=== PATIENT | male | born 1955 | race Caucasian/White ===

== ENCOUNTER → 2017-02-02 | Day surgery (SDC) | payer BC ==
[~2017-02-02] VITALS: Ht 170.2 cm; Wt 101.2 kg
[~2017-02-02] MED LIST: ARTHROTEC 50 OR; ASPIRIN81 MG PO; MULTI VIT PO; NORVASC10 M1 PO; PRAVASTATIN20 MG PO; TENORMIN25 MG PO; TERAZOSIN5 MG OR; VYTORIN 10/401 TAB OR
[2017-02-02 08:49] VITALS: BP 123/76
== END | disposition home or self-care (01) | DRG 951 ==
LOC: ENDO 01-27 08:30
PROVIDERS: ATTEND Surgery
PROC: 0DBN8ZX Excision of Sigmoid Colon, Via Natural or Artificial Opening Endoscopic, Diagnostic (ICD-10-PCS; principal; 2017-02-02)
DX: Z12.11 Encounter for screening for malignant neoplasm of colon (principal); I10 Essential (primary) hypertension; D12.5 Benign neoplasm of sigmoid colon; K57.30 Diverticulosis of large intestine without perforation or abscess without bleeding; E78.5 Hyperlipidemia, unspecified

== ENCOUNTER → 2018-07-31 | Outpatient (REF) | payer SELFPAY ==
[2018-07-31 08:59] LABS: ALBUMIN 4.1 g/dL (3.2-5.0); BILIRUBIN, TOTAL 0.9 mg/dL (0.0-1.4); CREATININE 1.5 mg/dL (0.7-1.3); POTASSIUM 4.4 mmol/l (3.5-5.1)
== END | disposition home or self-care (01) | DRG 305 ==
LOC: LAB 07:27
PROVIDERS: ATTEND Nurse Practitioner
DX: I10 Essential (primary) hypertension (principal)

== ENCOUNTER 2022-04-20 06:55 | Day surgery (SDC) | payer MEDICARE ==
[~2022-04-20] VITALS: Ht 167.6 cm; Wt 99.8 kg
[~2022-04-20 06:55] MED LIST changes: +AMLODIPINE PO; +COZAAR25 MG PO; +[UNRECOGNIZED DRUG - OTHER]
[2022-04-20 09:03] VITALS: BP 125/87
== END 2022-04-20 09:15 | disposition home or self-care (01) ==
LOC: ENDO 06:55 → ORM 08:00 → ENDO 09:15
PROVIDERS: ATTEND Surgery
PROC: 0DBH8ZX Excision of Cecum, Via Natural or Artificial Opening Endoscopic, Diagnostic (ICD-10-PCS; principal; 2022-04-20)
PROC: 0DBN8ZX Excision of Sigmoid Colon, Via Natural or Artificial Opening Endoscopic, Diagnostic (ICD-10-PCS; 2022-04-20)
PROC: 0DBM8ZX Excision of Descending Colon, Via Natural or Artificial Opening Endoscopic, Diagnostic (ICD-10-PCS; 2022-04-20)
DX: Z12.11 Encounter for screening for malignant neoplasm of colon (principal); D12.0 Benign neoplasm of cecum; D12.4 Benign neoplasm of descending colon; D12.5 Benign neoplasm of sigmoid colon; K57.30 Diverticulosis of large intestine without perforation or abscess without bleeding; K64.8 Other hemorrhoids; I10 Essential (primary) hypertension; E78.5 Hyperlipidemia, unspecified; Z86.010 Personal history of colon polyps; Z83.71 Family history of colonic polyps

== ENCOUNTER 2023-01-14 18:24 | Inpatient (IN) | payer MEDICARE ==
[~2023-01-14] VITALS: Ht 167.6 cm; Wt 83.0 kg
[2023-01-14] VITALS (13 sets, daily range): BP systolic 97–151; BP diastolic 65–92
[2023-01-14 18:59] LABS: BASO% 0.2 % (0-3); EOS% 0.5 % (0-8); HEMATOCRIT 39.8 % (39.0-50.0); HEMOGLOBIN 14.6 g/dl (14.0-18.0); IMMATURE GRANULOCYTES 0.6 % (0.0-5.0); MEAN CORPUSCULAR HGB 33.2 pG CALC (26.0-32.0); MEAN CORPUSCULAR HGB CONC 36.7 g/dL CAL (32.0-36.0); NEUT# 10.41 thou/uL (1.82-7.42); NEUT% 83.7 % (42-76); RED BLOOD COUNT 4.4 mill/uL (4.70-6.10); RED CELL DISTRI WIDTH 11.6 % (11.5-15.5)
[2023-01-14 19:01] LABS: MEAN CELL VOLUME 90.5 fL CALC (80.0-100.0)
[2023-01-14 19:15] LABS: INTERNATIONAL NORMALIZED RATIO 1.2 RATIO (0.7-1.3); PROTHROMBIN TIME 11.2 SECONDS (9.0-12.5)
[2023-01-14 19:35] LABS: ALBUMIN 4.2 g/dL (3.2-5.0); ALKALINE PHOSPHATASE 123 u/l (38-126); BUN 7 mg/dL (8-23); BUN/CREATININE RATIO 12 (12-20 (CALC)); CALCULATED LDLCHOLESTEROL 134 mg/dL (62-129 (CALC)); CHOLESTEROL HDL RATIO 3.6 (<4.4 (CALC)); CREATININE 0.6 mg/dL (0.7-1.3); GFR FOR AFR.AMER. > 60 ML/MIN (>=60 (CALC)); GFR OTHER RACES > 60 ML/MIN (>=60 (CALC)); HDL CHOLESTEROL 58 mg/dL (39.0-59.0); POTASSIUM 3.8 mmol/l (3.5-5.1); TOTAL CHOLESTEROL 207 mg/dl (0-199); TOTAL TRIGLYCERIDES 74 mg/dl (0-149); VLDL CHOLESTROL 15 mg/dl (4-45 (CALC))
[2023-01-14 19:41] LABS: ANION GAP 18 (6-22 (CALC)); BILIRUBIN, TOTAL 2.6 mg/dL (0.2-1.3); CARBON DIOXIDE 18 mmol/l (22-30); CHLORIDE 79 mmol/l (95-108); SGOT/AST 58 u/l (19-48); SODIUM 111 mmol/l (137-146)
[2023-01-14 19:56] LABS: URINE BILIRUBIN - DIPSTICK Negative (NEGATIVE); URINE BLOOD DIPSTICK Small (NEGATIVE); URINE GLUCOSE - DIPSTICK 100 mg/dL (NEGATIVE); URINE KETONE 15 mg/dL (NEGATIVE); URINE LEUK ESTERASE Negative (NEGATIVE); URINE NITRITE - DIPSTICK Negative (Negative); URINE PH 6.5 (4.5-8.0); URINE PROTEIN - DIPSTICK 30 mg/dL (NEG-TRACE); URINE SPECIFIC GRAVITY 1.015; URINE UROBILINOGEN - DIPSTICK 0.2 E.U./dL (0.2)
[2023-01-14 19:58] LABS: URINE COLOR Yellow
[2023-01-14 20:05] LABS: URINE CASTS RARE lpf (NONE-RARE); URINE RBC 0-2 RBC/hpf (0-5); URINE SQUAMOUS EPITHELIAL CELL RARE EPI/hpf (0-FEW)
[2023-01-15] VITALS (84 sets, daily range): BP systolic 86–166; BP diastolic 55–105
[2023-01-15 02:31] LABS: BUN 7 mg/dL (8-23); BUN/CREATININE RATIO 15 (12-20 (CALC)); CREATININE 0.4 mg/dL (0.7-1.3); GFR FOR AFR.AMER. > 60 ML/MIN (>=60 (CALC)); GFR OTHER RACES > 60 ML/MIN (>=60 (CALC)); POTASSIUM 3.6 mmol/l (3.5-5.1)
[2023-01-15 02:32] LABS: ANION GAP 11 (6-22 (CALC)); CARBON DIOXIDE 23 mmol/l (22-30); CHLORIDE 92 mmol/l (95-108); SODIUM 122 mmol/l (137-146)
[2023-01-15 11:24] LABS: ANION GAP 10 (6-22 (CALC)); BUN 6 mg/dL (8-23); BUN/CREATININE RATIO 12 (12-20 (CALC)); CARBON DIOXIDE 24 mmol/l (22-30); CHLORIDE 100 mmol/l (95-108); CREATININE 0.5 mg/dL (0.7-1.3); GFR FOR AFR.AMER. > 60 ML/MIN (>=60 (CALC)); GFR OTHER RACES > 60 ML/MIN (>=60 (CALC)); POTASSIUM 3.8 mmol/l (3.5-5.1)
[2023-01-15 11:36] LABS: SODIUM 130 mmol/l (137-146)
[2023-01-15 16:52] LABS: BUN 9 mg/dL (8-23); CARBON DIOXIDE 25 mmol/l (22-30); CHLORIDE 99 mmol/l (95-108); CREATININE 0.6 mg/dL (0.7-1.3); GFR FOR AFR.AMER. > 60 ML/MIN (>=60 (CALC)); GFR OTHER RACES > 60 ML/MIN (>=60 (CALC)); POTASSIUM 3.6 mmol/l (3.5-5.1); SODIUM 128 mmol/l (137-146)
[2023-01-15 16:54] LABS: ALBUMIN 3.3 g/dL (3.2-5.0)
[2023-01-16] VITALS (35 sets, daily range): BP systolic 116–165; BP diastolic 65–109
[2023-01-16 08:52] LABS: HEMATOCRIT 41.3 % (39.0-50.0); HEMOGLOBIN 14.2 g/dl (14.0-18.0); MEAN CELL VOLUME 95.4 fL CALC (80.0-100.0); MEAN CORPUSCULAR HGB 32.8 pG CALC (26.0-32.0); MEAN CORPUSCULAR HGB CONC 34.4 g/dL CAL (32.0-36.0); RED BLOOD COUNT 4.33 mill/uL (4.70-6.10); RED CELL DISTRI WIDTH 12.3 % (11.5-15.5)
[2023-01-16 09:00] LABS: ALBUMIN 3.4 g/dL (3.2-5.0); BUN 5 mg/dL (8-23); CARBON DIOXIDE 30 mmol/l (22-30); CHLORIDE 94 mmol/l (95-108); CREATININE 0.6 mg/dL (0.7-1.3); GFR FOR AFR.AMER. > 60 ML/MIN (>=60 (CALC)); GFR OTHER RACES > 60 ML/MIN (>=60 (CALC)); POTASSIUM 3.4 mmol/l (3.5-5.1); SODIUM 130 mmol/l (137-146)
[2023-01-16] MEDS ORDERED: PREDNISOLONE AC OS (19:43)
[2023-01-17] VITALS (7 sets, daily range): BP systolic 122–144; BP diastolic 63–93
[2023-01-17 09:02] LABS: ALBUMIN 3.6 g/dL (3.2-5.0); ALKALINE PHOSPHATASE 91 u/l (38-126); ANION GAP 11 (6-22 (CALC)); BUN 5 mg/dL (8-23); BUN/CREATININE RATIO 8 (12-20 (CALC)); CARBON DIOXIDE 29 mmol/l (22-30); CHLORIDE 92 mmol/l (95-108); CREATININE 0.7 mg/dL (0.7-1.3); GFR FOR AFR.AMER. > 60 ML/MIN (>=60 (CALC)); GFR OTHER RACES > 60 ML/MIN (>=60 (CALC)); POTASSIUM 3.7 mmol/l (3.5-5.1); SGOT/AST 83 u/l (19-48); SODIUM 128 mmol/l (137-146); TOTAL PROTEIN 6.6 g/dL (6.3-8.2)
[2023-01-17 09:03] LABS: BILIRUBIN, TOTAL 1.4 mg/dL (0.2-1.3)
[2023-01-17] MEDS ORDERED: NORVASC10 M1 PO (14:28)
[2023-01-18] VITALS (10 sets, daily range): BP systolic 112–141; BP diastolic 71–84
[2023-01-18 05:27] LABS: ALBUMIN 3.2 g/dL (3.2-5.0); BUN 10 mg/dL (8-23); CARBON DIOXIDE 26 mmol/l (22-30); CHLORIDE 99 mmol/l (95-108); CREATININE 0.6 mg/dL (0.7-1.3); GFR FOR AFR.AMER. > 60 ML/MIN (>=60 (CALC)); GFR OTHER RACES > 60 ML/MIN (>=60 (CALC)); POTASSIUM 3.7 mmol/l (3.5-5.1); SODIUM 129 mmol/l (137-146)
[2023-01-18 05:28] LABS: ALBUMIN 3.2 g/dL (3.2-5.0); ALKALINE PHOSPHATASE 100 u/l (38-126); ANION GAP 10 (6-22 (CALC)); BILIRUBIN, TOTAL 1.3 mg/dL (0.2-1.3); BUN 10 mg/dL (8-23); BUN/CREATININE RATIO 16 (12-20 (CALC)); CARBON DIOXIDE 25 mmol/l (22-30); CHLORIDE 98 mmol/l (95-108); CREATININE 0.6 mg/dL (0.7-1.3); GFR FOR AFR.AMER. > 60 ML/MIN (>=60 (CALC)); GFR OTHER RACES > 60 ML/MIN (>=60 (CALC)); POTASSIUM 3.8 mmol/l (3.5-5.1); SGOT/AST 89 u/l (19-48); SODIUM 130 mmol/l (137-146); TOTAL PROTEIN 5.8 g/dL (6.3-8.2)
[2023-01-18 05:32] LABS: BASO% 0.5 % (0-3); EOS% 2.2 % (0-8); HEMATOCRIT 42.4 % (39.0-50.0); HEMOGLOBIN 14.5 g/dl (14.0-18.0); IMMATURE GRANULOCYTES 0.3 % (0.0-5.0); LYMPH% 13.8 % (15-41); MEAN CELL VOLUME 96.8 fL CALC (80.0-100.0); MEAN CORPUSCULAR HGB 33.1 pG CALC (26.0-32.0); MEAN CORPUSCULAR HGB CONC 34.2 g/dL CAL (32.0-36.0); MONO% 12.8 % (2-13); NEUT# 4.55 thou/uL (1.82-7.42); NEUT% 70.4 % (42-76); RED BLOOD COUNT 4.38 mill/uL (4.70-6.10); RED CELL DISTRI WIDTH 12.1 % (11.5-15.5)
[2023-01-19 00:16] VITALS: BP 129/83
[2023-01-19 00:31] VITALS: BP 129/83
[2023-01-19 04:12] VITALS: BP 144/78
[2023-01-19 05:03] VITALS: BP 144/78
[2023-01-19 06:17] LABS: BASO% 0.7 % (0-3); HEMATOCRIT 41.1 % (39.0-50.0); HEMOGLOBIN 14.1 g/dl (14.0-18.0); IMMATURE GRANULOCYTES 0.6 % (0.0-5.0); LYMPH% 12.2 % (15-41); MEAN CELL VOLUME 96.9 fL CALC (80.0-100.0); MEAN CORPUSCULAR HGB 33.3 pG CALC (26.0-32.0); MEAN CORPUSCULAR HGB CONC 34.3 g/dL CAL (32.0-36.0); MONO% 15.9 % (2-13); NEUT# 4.69 thou/uL (1.82-7.42); NEUT% 67.6 % (42-76); RED BLOOD COUNT 4.24 mill/uL (4.70-6.10); RED CELL DISTRI WIDTH 12.3 % (11.5-15.5)
[2023-01-19 06:22] LABS: ALBUMIN 3.1 g/dL (3.2-5.0); ALKALINE PHOSPHATASE 107 u/l (38-126); ANION GAP 8 (6-22 (CALC)); BILIRUBIN, TOTAL 1.1 mg/dL (0.2-1.3); BUN 14 mg/dL (8-23); BUN/CREATININE RATIO 21 (12-20 (CALC)); CARBON DIOXIDE 29 mmol/l (22-30); CHLORIDE 98 mmol/l (95-108); CREATININE 0.7 mg/dL (0.7-1.3); GFR FOR AFR.AMER. > 60 ML/MIN (>=60 (CALC)); GFR OTHER RACES > 60 ML/MIN (>=60 (CALC)); SGOT/AST 88 u/l (19-48); SODIUM 132 mmol/l (137-146); TOTAL PROTEIN 5.7 g/dL (6.3-8.2)
[2023-01-19 07:37] VITALS: BP 138/74
[2023-01-19 10:44] VITALS: BP 126/74
[2023-01-19] MEDS ORDERED: SOD CHLORIDE1 GM PO (13:03)
== END 2023-01-19 14:14 | DRG 640 ==
LOC: ED 18:24 → ED-I 21:00 → ED 21:13 → ICU 21:14 → MS2 22:13 → ICU 22:13 → MS2 22:36
PROVIDERS: Family Medicine; Internal Medicine Nephrology; Nurse Practitioner Family; ADMIT Student in an Organized Health Care Education/Training Program; ATTEND Student in an Organized Health Care Education/Training Program
DX: E87.1 Hypo-osmolality and hyponatremia (principal); G93.41 Metabolic encephalopathy; R56.9 Unspecified convulsions; E86.0 Dehydration; F10.10 Alcohol abuse, uncomplicated; I10 Essential (primary) hypertension; E78.5 Hyperlipidemia, unspecified; S20.212A Contusion of left front wall of thorax, initial encounter; W19.XXXA Unspecified fall, initial encounter; F17.200 Nicotine dependence, unspecified, uncomplicated; X30.XXXA Exposure to excessive natural heat, initial encounter; Z96.612 Presence of left artificial shoulder joint
CPT/HCPCS: J1650; J2060; Q9967

== ENCOUNTER 2024-08-01 09:09 | Emergency (ER) | payer MEDICARE ==
[~2024-08-01] VITALS: Ht 167.6 cm; Wt 68.0 kg
[2024-08-01] VITALS (12 sets, daily range): BP systolic 105–132; BP diastolic 78–90
[~2024-08-01 09:09] MED LIST changes: +PREDNISOLONE AC OS; +SOD CHLORIDE1 GM PO
[2024-08-01] MEDS ORDERED: KETOROLAC TROMETHAMINE 30 MG/ML SDV IM ONE (10:10)
[2024-08-01] MEDS ORDERED: ACETAMINOPHEN 500 MG TAB PO ONE (10:10)
[2024-08-01] MEDS ORDERED: TRAMADOL HYDROC50 M1 PO (11:58)
[2024-08-01] MEDS ORDERED: EC-NAPROXEN500 MG PO (11:58)
[2024-08-01] MEDS ORDERED: CEPHALEXIN500 M1 PO (12:01)
== END 2024-08-01 12:13 | disposition home or self-care (01) ==
LOC: ED 09:09
DX: S22.080A Wedge compression fracture of T11-T12 vertebra, initial encounter for closed fracture (principal); S32.030A Wedge compression fracture of third lumbar vertebra, initial encounter for closed fracture; S51.011A Laceration without foreign body of right elbow, initial encounter; I10 Essential (primary) hypertension; W19.XXXA Unspecified fall, initial encounter; Z72.0 Tobacco use

== ENCOUNTER 2024-08-02 10:39 | Emergency (ER) | payer MEDICARE ==
[2024-08-02] VITALS (8 sets, daily range): BP systolic 106–130; BP diastolic 77–86
[~2024-08-02] VITALS: Ht 167.6 cm; Wt 78.9 kg
[~2024-08-02 10:39] MED LIST changes: +CEPHALEXIN500 M1 PO; +EC-NAPROXEN500 MG PO; +TRAMADOL HYDROC50 M1 PO
== END 2024-08-02 12:24 | disposition home or self-care (01) ==
LOC: ED 10:39
DX: S41.111D Laceration without foreign body of right upper arm, subsequent encounter (principal); X58.XXXD Exposure to other specified factors, subsequent encounter; I10 Essential (primary) hypertension

== ENCOUNTER 2024-08-05 09:51 | Emergency (ER) | payer MEDICARE ==
[~2024-08-05] VITALS: Ht 167.6 cm; Wt 101.0 kg
[2024-08-05 09:58] VITALS: BP 123/88
[2024-08-05 10:00] VITALS: BP 120/81
== END 2024-08-05 10:08 | disposition home or self-care (01) ==
LOC: ED 09:51
DX: S51.811D Laceration without foreign body of right forearm, subsequent encounter (principal); I10 Essential (primary) hypertension; X58.XXXD Exposure to other specified factors, subsequent encounter; Z72.0 Tobacco use

== ENCOUNTER 2024-08-10 10:43 | Emergency (ER) | payer MEDICARE ==
[~2024-08-10] VITALS: Ht 167.6 cm; Wt 78.9 kg
[2024-08-10] VITALS (29 sets, daily range): BP systolic 78–116; BP diastolic 56–79
[2024-08-10 11:39] LABS: BASO% 0.7 % (0-3); EOS% 2.4 % (0-8); HEMATOCRIT 39.5 % (39.0-50.0); HEMOGLOBIN 13.6 g/dl (14.0-18.0); IMMATURE GRANULOCYTES 0.2 % (0.0-5.0); LYMPH% 14.8 % (15-41); MEAN CELL VOLUME 93.4 fL CALC (80.0-100.0); MEAN CORPUSCULAR HGB 32.2 pG CALC (26.0-32.0); MEAN CORPUSCULAR HGB CONC 34.4 g/dL CAL (32.0-36.0); MONO% 10.1 % (2-13); NEUT# 6.49 thou/uL (1.82-7.42); NEUT% 71.8 % (42-76); RED BLOOD COUNT 4.23 mill/uL (4.70-6.10); RED CELL DISTRI WIDTH 11.7 % (11.5-15.5)
[2024-08-10 11:58] LABS: ALBUMIN 3.5 g/dL (3.2-5.0); BILIRUBIN, TOTAL 1.1 mg/dL (0.2-1.3); CREATININE 0.8 mg/dL (0.7-1.3); POTASSIUM 3.8 mmol/l (3.5-5.1); TOTAL PROTEIN 6.5 g/dL (6.3-8.2)
[2024-08-10] MEDS ORDERED: SODIUM CHLORIDE 0.9% 1,000 ML IV ONE (12:20)
== END 2024-08-10 17:29 | disposition home or self-care (01) ==
LOC: ED 10:43
PROVIDERS: Family Medicine
DX: I11.0 Hypertensive heart disease with heart failure (principal); I50.9 Heart failure, unspecified; M54.9 Dorsalgia, unspecified; I48.91 Unspecified atrial fibrillation; Z72.0 Tobacco use
CPT/HCPCS: Q9967

== ENCOUNTER 2024-08-11 08:44 | Emergency (ER) | payer MEDICARE ==
[2024-08-11] VITALS (9 sets, daily range): BP systolic 93–121; BP diastolic 57–82
[~2024-08-11] VITALS: Ht 167.6 cm; Wt 77.0 kg
[2024-08-11 09:40] LABS: EOS% 4.5 % (0-8); HEMATOCRIT 41.2 % (39.0-50.0); HEMOGLOBIN 13.6 g/dl (14.0-18.0); IMMATURE GRANULOCYTES 0.4 % (0.0-5.0); LYMPH% 17.1 % (15-41); MEAN CORPUSCULAR HGB 31.7 pG CALC (26.0-32.0); MONO% 11.4 % (2-13); NEUT# 4.54 thou/uL (1.82-7.42); NEUT% 65.6 % (42-76); RED BLOOD COUNT 4.29 mill/uL (4.70-6.10); RED CELL DISTRI WIDTH 11.7 % (11.5-15.5)
[2024-08-11 09:46] LABS: ALBUMIN 3.7 g/dL (3.2-5.0); BILIRUBIN, TOTAL 1.2 mg/dL (0.2-1.3); CREATININE 0.8 mg/dL (0.7-1.3); POTASSIUM 3.2 mmol/l (3.5-5.1); TOTAL PROTEIN 6.9 g/dL (6.3-8.2)
[2024-08-11] MEDS ORDERED: POTASSIUM CHLORIDE 20 MEQ/TAB PO ONE (10:40)
== END 2024-08-11 10:54 | disposition home or self-care (01) ==
LOC: ED 08:44
PROVIDERS: Family Medicine
DX: J44.9 Chronic obstructive pulmonary disease, unspecified (principal); I10 Essential (primary) hypertension; M54.9 Dorsalgia, unspecified; Z72.0 Tobacco use